=== PATIENT | female | born 2000 | race Caucasian/White ===

== ENCOUNTER 2020-09-11 12:51 | Emergency (ER) | payer SELFPAY ==
[~2020-09-11 12:51] MED LIST: LEXAPRO20 MG PO; NORCO 5-325 TA1 EACH PO; OMEPRAZOLE40 MG PO; SYNTHROID112 MCG PO; ZOFRAN4 MG PO
[2020-09-11 13:31] LABS: BILIRUBIN NEGATIVE (NEGATIVE); BLOOD NEGATIVE Ery/uL (NEGATIVE); CLARITY CLEAR (CLEAR); COLOR YELLOW (YELLOW); GLUCOSE (U) NORMAL (NORMAL); LEUKOCYTES NEGATIVE Leu/uL (NEGATIVE); NITRITE NEGATIVE (NEGATIVE); PROTEIN NEGATIVE (NEGATIVE); SPECIFIC GRAVITY >=1.030 (1.001-1.030); UROBILINOGEN 0.2 mg/dL (0.2-1.0); pH 5.5 (5.0-9.0)
[2020-09-11 13:38] LABS: BASOPHIL 0.2 % (0-2); EOSINOPHIL 0.6 % (0-5); HCT 32.8 % (37.0-47.0); HGB 10.6 g/dl (12.5-16.0); LYMPHOCYTE 27.7 % (15-48); MCH 25.8 pg (25.0-31.0); MCHC 32.3 g/dL (32.0-36.0); MCV 79.8 fL (78.0-100.0); MONOCYTE 5.5 % (0-12); MPV 9.2 fL (6.0-9.5); NEUTROPHIL 65.8 % (41-80); NRBC 0; PLT 321 K/uL (150-400); RBC 4.11 M/uL (4.20-5.40); RDW 13.9 % (11.5-14.0); WBC 9.5 K/uL (4.0-10.5)
[2020-09-11 13:55] LABS: ALBUMIN 4.1 g/dL (3.4-5.0); BILIRUBIN - TOTAL 0.6 mg/dL (0.2-1.0); BUN/CREAT RATIO (CALC) 17.1 RATIO; CREATININE 0.7 mg/dL (0.51-0.95); GLOBULIN (CALCULATION) 3.4 g/dL; POTASSIUM 3.8 mmol/L (3.5-5.1); TOTAL PROTEIN 7.5 g/dL (6.4-8.2)
== END 2020-09-11 15:50 | disposition home or self-care (01) ==
LOC: FER 12:51
PROVIDERS: Nurse Practitioner Family
DX: R10.84 Generalized abdominal pain (principal); R11.0 Nausea; R63.0 Anorexia; E03.9 Hypothyroidism, unspecified; K21.9 Gastro-esophageal reflux disease without esophagitis; Z90.49 Acquired absence of other specified parts of digestive tract; Z98.890 Other specified postprocedural states; Z79.899 Other long term (current) drug therapy
CPT/HCPCS: 36415; 80053; 81003; 82150; 83690; 85025; J1885; J2405; J7030; Q9967